=== PATIENT | female | born 1975 | race Caucasian/White ===

== ENCOUNTER → 2016-07-31 | Outpatient (REF) | payer BC, MEDICAID | LOC: M LAB REF 11:15 | PROVIDERS: ATTEND Physician Assistant | DX: N39.0 Urinary tract infection, site not specified (principal) ==

== ENCOUNTER 2018-03-02 07:21 | Day surgery (SDC) | payer OTHER ==
[2018-03-02 07:45] LABS: CONTROL LINE UCG INT CTR LINE PRESENT; HEMATOCRIT 37.5 % (36.0-47.0); HEMOGLOBIN 11.9 g/dl (12.0-15.5); MEAN CORPUSCULAR HEMOGLOBIN 27.5 pg (27.0-33.0); MEAN CORPUSCULAR HGB CONC 31.7 g/dl (32.0-36.5); MEAN CORPUSCULAR VOLUME 86.6 fl (80.0-96.0); PLATELET COUNT, AUTOMATED 353 10^3/uL (150-450); RED BLOOD COUNT 4.33 10^6/uL (4.00-5.40); RED CELL DISTRIBUTION WIDTH 14.9 % (11.5-14.5); URINE PREG TEST NEGATIVE (NEGATIVE); WHITE BLOOD COUNT 6.2 10^3/uL (4.0-10.0)
[2018-03-02] MEDS ORDERED: dexameTHASONE 4 MG/ML 1ML VIAL (J1100) As Ordered (07:57)
[2018-03-02] MEDS ORDERED: LIDOCAINE 2% INJ 100 MG/5 ML SDV (FOR ANES.) As Ordered (07:57)
[2018-03-02] MEDS ORDERED: PROPOFOL 200 MG/20 ML VIAL As Ordered (07:57)
[2018-03-02] MEDS ORDERED: KETOROLAC 60 MG/2 ML VIAL (J1885) As Ordered (07:57)
[2018-03-02] MEDS ORDERED: ONDANSETRON 4MG/2ML VIAL (J2405) As Ordered (07:57)
[2018-03-02] MEDS ORDERED: NEOSTIGMINE 10 MG/10 ML VIAL (J2710) As Ordered (07:57)
[2018-03-02] MEDS ORDERED: GLYCOPYRROLATE INJ 0.2 MG/ML 2 ML VIAL As Ordered (07:57)
[2018-03-02] MEDS ORDERED: fentaNYL 100 MCG/2 ML INJECTION (J3010) As Ordered ×2 (07:58→09:30)
[2018-03-02] MEDS ORDERED: MIDAZOLAM INJ 2 MG/2 ML VIAL (J2250) As Ordered (07:58)
[2018-03-02] MEDS: LR 1,000 ML IV (08:02)
[2018-03-02] MEDS ORDERED: ROCURONIUM BROMIDE 50 MG/5 ML VIAL As Ordered (08:03)
[2018-03-02] MEDS: ACETAMINOPHEN 650 MG SUPP As Ordered (08:55)
[2018-03-02] MEDS: BUPIVACAINE HCL 0.25% 30 ML VIAL As Ordered (09:23)
[2018-03-02] MEDS: fentaNYL 100 MCG/2 ML INJECTION (J3010) IV ×4 (09:30→09:47)
[2018-03-02] MEDS ORDERED: MEPERIDINE INJ 25 MG/ML VIAL (J2175) As Ordered (09:34)
[2018-03-02] MEDS: MEPERIDINE INJ 25 MG/ML VIAL (J2175) IV ×2 (09:36→09:41)
[2018-03-02] MEDS ORDERED: METOCLOPRAMIDE INJ 10MG/2ML VIAL (J2765) IV (10:00)
[2018-03-02] MEDS ORDERED: ONDANSETRON 4MG/2ML VIAL (J2405) IV (10:00)
[2018-03-02] MEDS ORDERED: LR 1,000 ML IV (10:00)
[2018-03-02] MEDS ORDERED: PERCOCET 5MG/325MG TAB PO (10:15)
[2018-03-02] MEDS: PERCOCET 5MG/325MG TAB PO (10:30)
[2018-03-02] MEDS ORDERED: IBUPROFEN 800 MG TAB PO (16:00)
== END 2018-03-03 12:15 | disposition home or self-care (01) ==
LOC: M SDC 07:21
DX: N92.1 Excessive and frequent menstruation with irregular cycle (principal); Z30.2 Encounter for sterilization; I10 Essential (primary) hypertension; K04.7 Periapical abscess without sinus; G43.909 Migraine, unspecified, not intractable, without status migrainosus; J45.909 Unspecified asthma, uncomplicated; Z79.899 Other long term (current) drug therapy
CPT/HCPCS: 58671

== ENCOUNTER → 2018-10-14 | Outpatient (CLI) | payer OTHER, BC ==
[~2018-10-14] MED LIST: AMOX500T PO; BREO1INH INH; IBUP-1114 PO; IBUP1TAB7 PO; LISI10TA4 PO; TYLE325T5 PO; VENTAER IN
== END ==
LOC: M ADAMS 12:49
PROVIDERS: ATTEND Physician Assistant Medical
DX: M54.42 Lumbago with sciatica, left side (principal)

== ENCOUNTER → 2018-10-14 | Outpatient (CLI) | payer BC, OTHER ==
--- NOTE | 2018-10-14 13:51 | REP ---
LEFT HIP, TWO VIEWS: There is no evidence of an acute fracture, dislocation or intrinsic bone disease. IMPRESSION: No fracture or dislocation. Electronically Signed by Isaias Cronin MD 10/14/2018 02:59 P
--- NOTE | 2018-10-14 14:19 | REP ---
LUMBOSACRAL SPINE: Five views of the lumbosacral spine are performed. There is no compression fracture or malalignment. There is normal lumbar lordosis. There is no spondylolysis or spondylolisthesis. Disc spaces are well preserved. Posterior elements are intact. There is slightly curvature toward the left. Tubal ligation clips are seen in the pelvis bilaterally. There is mild sclerosis along the sacroiliac joints. There is mild sclerosis at the facets of L5-S1. IMPRESSION: Mild sclerosis of the facets of L5-S1. Mild sclerosis along the sacroiliac joints. No significant degenerative disc changes noted. There is slight curvature of the lumbar spine convex to the left. Electronically Signed by Isaias Cronin MD 10/14/2018 03:01 P
== END ==
LOC: M ADAMS 12:56
PROVIDERS: ATTEND Physician Assistant Medical
DX: M54.42 Lumbago with sciatica, left side (principal); G95.89 Other specified diseases of spinal cord

== ENCOUNTER 2019-01-20 13:30 | Emergency (ER) | payer BC, OTHER ==
[~2019-01-20] VITALS: Ht 172.7 cm; Wt 56.8 kg
[2019-01-20] MEDS ORDERED: NS 1,000 ML IV ONE (14:00)
[2019-01-20] MEDS ORDERED: PROMETHAZINE INJ 25 MG/ML VIAL (J2550) IV ONE (14:00)
[2019-01-20 14:33] LABS: BASO # 0.1 10^3/uL (0.0-0.2); BASO % 0.3 % (0.0-1.0); EOS % 0.1 % (0.0-3.0); HEMATOCRIT 40.3 % (36.0-47.0); HEMOGLOBIN 13.6 g/dl (12.0-15.5); LYMPH # 1.1 10^3/uL (1.5-4.5); MEAN CORPUSCULAR HGB CONC 33.7 g/dl (32.0-36.5); MEAN CORPUSCULAR VOLUME 88.8 fl (80.0-96.0); MONO # 0.6 10^3/uL (0.0-0.8); MONO % 3.1 % (0.0-5.0); NEUTROPHILS # 16.2 10^3/uL (1.8-7.7); PLATELET COUNT, AUTOMATED 394 10^3/uL (150-450); RED BLOOD COUNT 4.54 10^6/uL (4.00-5.40); WHITE BLOOD COUNT 17.9 10^3/uL (4.0-10.0)
[2019-01-20 15:25] LABS: ALBUMIN 3.9 GM/DL (3.2-5.2); ALT/SGPT 19 U/L (12-78); BILIRUBIN,DIRECT < 0.1 MG/DL (0.0-0.2); BILIRUBIN,TOTAL 0.3 MG/DL (0.2-1.0); BLOOD UREA NITROGEN 12 MG/DL (7-18); CALCIUM LEVEL 8.6 MG/DL (8.5-10.1); CARBON DIOXIDE LEVEL 27 MEQ/L (21-32); CHLORIDE LEVEL 108 MEQ/L (98-107); CREATININE FOR GFR 0.83 MG/DL (0.55-1.30); ETHYL ALCOHOL (ETHANOL) < 0.003 % (0.000-0.010); GLOMERULAR FILTRATION RATE > 60.0 (>58); GLUCOSE, FASTING 136 MG/DL (70-100); LIPASE 132 U/L (73-393); POTASSIUM SERUM 3.9 MEQ/L (3.5-5.1); SODIUM LEVEL 141 MEQ/L (136-145)
[2019-01-20] MEDS ORDERED: ZOFR4TAB16 PO (15:49)
[2019-01-20 16:04] VITALS: BP 116/70
== END 2019-01-20 16:13 | disposition home or self-care (01) ==
LOC: EDBD 13:30 → M ED 13:30
DX: R11.2 Nausea with vomiting, unspecified (principal); I10 Essential (primary) hypertension; Z79.899 Other long term (current) drug therapy
CPT/HCPCS: 80048; 80076; 83690; 85025; 96374; 99284; G0480

== ENCOUNTER 2019-01-24 11:23 | Emergency (ER) | payer BC, MEDICAID ==
[~2019-01-24] VITALS: Ht 172.7 cm; Wt 55.0 kg
[~2019-01-24 11:23] MED LIST changes: +ZOFR4TAB16 PO
[2019-01-24] MEDS ORDERED: NS 1,000 ML IV SCH (11:30)
[2019-01-24] MEDS ORDERED: SYMB80INH PO (11:41)
[2019-01-24 12:02] LABS: BASO # 0.1 10^3/uL (0.0-0.2); BASO % 0.6 % (0.0-1.0); EOS # 0.1 10^3/uL (0.0-0.50); EOS % 1.3 % (0.0-3.0); HEMOGLOBIN 16.5 g/dl (12.0-15.5); LYMPH # 2.2 10^3/uL (1.5-4.5); LYMPH % 25.9 % (24.0-44.0); MEAN CORPUSCULAR HEMOGLOBIN 29.3 pg (27.0-33.0); MEAN CORPUSCULAR HGB CONC 34.4 g/dl (32.0-36.5); MEAN CORPUSCULAR VOLUME 85.1 fl (80.0-96.0); MONO # 0.9 10^3/uL (0.0-0.8); MONO % 10.9 % (0.0-5.0); NEUTROPHILS # 5.1 10^3/uL (1.8-7.7); NEUTROPHILS % 60.9 % (36.0-66.0); PLATELET COUNT, AUTOMATED 474 10^3/uL (150-450); RED BLOOD COUNT 5.64 10^6/uL (4.00-5.40); WHITE BLOOD COUNT 8.4 10^3/uL (4.0-10.0)
[2019-01-24 12:36] LABS: ALT/SGPT 17 U/L (12-78); BILIRUBIN,DIRECT 0.2 MG/DL (0.0-0.2); BILIRUBIN,TOTAL 0.6 MG/DL (0.2-1.0); CK-MB VALUE MASS < 1.0 NG/ML (<3.6); CPK CREATINE PHOSPHOKINASE 39 U/L (26-192); LIPASE 693 U/L (73-393); MB/CK RELATIVE INDEX 2.56 (< OR =4); TOTAL PROTEIN 7.5 GM/DL (6.4-8.2); TROPONIN I < 0.02 NG/ML (< 0.10)
[2019-01-24] MEDS ORDERED: METOCLOPRAMIDE INJ 10MG/2ML VIAL (J2765) IV ONE (13:15)
[2019-01-24 14:15] LABS: HCG, SERUM QUALITATIVE NEGATIVE (NEGATIVE)
[2019-01-24] MEDS ORDERED: ISOVUE-370 76% 100ML VIAL (Q9967) As Ordered ONE (14:51)
[2019-01-24] MEDS ORDERED: SUCRALFATE SUSP 1GM/10ML UD PO ONE (15:15)
[2019-01-24] MEDS ORDERED: NS 1,000 ML IV ONE (15:15)
--- NOTE | 2019-01-24 15:30 | REP ---
HISTORY: Abdominal pain. COMPARISON: None. CONTRAST: 100 mL [id number] There are multiple peripheral nodular enhancing lesions in the liver, all three are in the right lobe, two in the anterior segment and the largest of which is in the posterior segment and measures 3.3 mm. All are consistent with hepatic hemangiomas. The liver is otherwise unremarkable. The gallbladder, spleen, pancreas, adrenal glands, and kidneys are within normal limits. The abdominal aorta and periaortic regions are within normal limits. The bowel loops and the mesenteries are within normal limits. The appendix is well visualized and is unremarkable. There is no free fluid or free air in the abdomen. There is no intraabdominal mass or adenopathy. CT PELVIS: There are bilateral pelvic phleboliths. The bowel loops and their mesenteries are within normal limits. There is no free fluid or free air. Bone window technique the examination shows the osseous structures to be within normal limits. The lung bases are clear. IMPRESSION: 1. There are multiple hepatic lesions, all of which are consistent with benign hepatic hemangiomas. 2. CT findings are otherwise unremarkable. Electronically Signed by Khai Mauricio DO 01/24/2019 03:49 P
[2019-01-24] MEDS ORDERED: REGL10TA6 PO (15:41)
[2019-01-24] MEDS ORDERED: PEPC1TAB5 PO (15:41)
[2019-01-24] MEDS ORDERED: SUCR1SS PO (15:42)
[2019-01-24 16:00] VITALS: BP 132/89
--- NOTE | 2019-01-25 06:07 | ECGEPIP ---
[facility] - ED Test Date: 2019-01-24 Pat Name: LISA EMERY Department: Room: - Gender: Female Change Number Operator: EMMANUELLE : 1975 Requested By: Micki Liu Order Number: [id number] Reading MD: Farshad Arciniega Measurements Intervals [place] Rate: 69 P: 76 NC: 129 QRS: 66 QRSD: 85 T: 52 QT: 425 QTc: 456 Interpretive Statements SINUS RHYTHM POSSIBLE LEFT ATRIAL ENLARGEMENT INCOMPLETE RIGHT BUNDLE BRANCH BLOCK NO PRIORS FOR COMPARISON Electronically Signed on 01-25-2019 6:06:48 EDT by Farshad Arciniega
== END 2019-01-24 16:14 | disposition home or self-care (01) ==
LOC: EDBD 11:23 → M ED 11:23
DX: K85.90 Acute pancreatitis without necrosis or infection, unspecified (principal); I45.19 Other right bundle-branch block; K76.89 Other specified diseases of liver; I10 Essential (primary) hypertension; J45.909 Unspecified asthma, uncomplicated; G43.909 Migraine, unspecified, not intractable, without status migrainosus; Z87.891 Personal history of nicotine dependence; Z79.899 Other long term (current) drug therapy
CPT/HCPCS: 74177; 80047; 80076; 82550; 82553; 83690; 84484; 84703; 85025; 93005; 93041; 96361; 96374; 99285; J2765; Q9967

== ENCOUNTER → 2020-10-26 | Outpatient (CLI) | payer BC, MEDICAID, OTHER ==
[~2020-10-26] MED LIST changes: +LISI10TA22 PO; -LISI10TA4 PO; +PEPC1TAB5 PO; +REGL10TA6 PO; +SUCR1SS PO; +SYMB80INH PO
--- NOTE | 2020-10-26 13:43 | REP ---
INDICATION: PAIN COMPARISON: None. TECHNIQUE: AP, lateral, bilateral oblique views. FINDINGS: Soft tissue swelling consistent with inversion injury. No obvious acute fracture or dislocation. Ankle mortise appears intact. IMPRESSION: Swelling. No acute fracture or dislocation appreciated. <Electronically signed by [place] > 10/26/20 [id number]
== END ==
LOC: M WUC 09:33
PROVIDERS: ATTEND Physician Assistant
DX: M25.572 Pain in left ankle and joints of left foot (principal)

== ENCOUNTER → 2020-12-10 | Outpatient (REF) | payer BC, OTHER ==
[2020-12-10 17:17] LABS: APPEARANCE, URINE CLEAR (CLEAR); BACTERIA, URINE AUTO NEGATIVE (NEGATIVE); BILIRUBIN, URINE AUTO NEGATIVE (NEGATIVE); BLOOD, URINE BLOOD 1+ (NEGATIVE); COLOR, URINE YELLOW (YELLOW); GLUCOSE, URINE (UA) AUTO NEGATIVE (NEGATIVE); KETONE, URINE AUTO NEGATIVE (NEGATIVE); LEUKOCYTE ESTERASE, URINE AUTO NEGATIVE (NEGATIVE); MUCUS, URINE SMALL (NEGATIVE); NITRITE, URINE AUTO NEGATIVE (NEGATIVE); PROTEIN, URINE AUTO NEGATIVE (NEGATIVE); RBC, URINE AUTO 0 /HPF (0-3); SPECIFIC GRAVITY URINE AUTO 1.011 (1.002-1.035); SQUAMOUS EPITHELIAL CELL UR AU 1 /HPF (0-6); UROBILINOGEN, URINE AUTO 0.2 mg/dL (0.0-2.0); WBC, URINE AUTO 0 /HPF (0-3)
[2020-12-10 17:22] LABS: BASO % 0.6 % (0.0-1.0); EOS # 0.2 10^3/uL (0.0-0.5); EOS % 3.2 % (0.0-3.0); HEMOGLOBIN 13.4 g/dl (12.0-15.5); LYMPH # 2.2 10^3/uL (1.5-5.0); LYMPH % 34.8 % (24.0-44.0); MEAN CORPUSCULAR HEMOGLOBIN 28.5 pg (27.0-33.0); MEAN CORPUSCULAR HGB CONC 31.9 g/dl (32.0-36.5); MEAN CORPUSCULAR VOLUME 89.2 fl (80.0-96.0); MONO # 0.6 10^3/uL (0.0-0.8); MONO % 9.5 % (2.0-8.0); NEUTROPHILS # 3.2 10^3/uL (1.5-8.5); NEUTROPHILS % 51.7 % (36.0-66.0); PLATELET COUNT, AUTOMATED 394 10^3/uL (150-450); RED BLOOD COUNT 4.71 10^6/uL (4.00-5.40); WHITE BLOOD COUNT 6.2 10^3/uL (4.0-10.0)
[2020-12-10 17:53] LABS: ALBUMIN 3.9 GM/DL (3.2-5.2); ALT/SGPT 15 U/L (12-78); BILIRUBIN,TOTAL 0.6 MG/DL (0.2-1.0); BLOOD UREA NITROGEN 8 MG/DL (7-18); CALCIUM LEVEL 8.5 MG/DL (8.5-10.1); CARBON DIOXIDE LEVEL 29 MEQ/L (21-32); CHLORIDE LEVEL 105 MEQ/L (98-107); CHOLESTEROL LEVEL 186 MG/DL (<200); CHOLESTEROL RISK RATIO 3.444 (<5); CREATININE FOR GFR 0.88 MG/DL (0.55-1.30); GLOMERULAR FILTRATION RATE > 60.0 (>58); GLUCOSE, FASTING 78 MG/DL (70-100); HDL CHOLESTEROL 54 MG/DL (>40); LDL CHOLESTEROL 120 MG/DL (<100); NON-HDL-C 132 MG/DL; POTASSIUM SERUM 4.6 MEQ/L (3.5-5.1); SODIUM LEVEL 136 MEQ/L (136-145); TOTAL PROTEIN 6.9 GM/DL (6.4-8.2); TRIGLYCERIDES LEVEL 61 MG/DL (<150)
== END ==
LOC: M SFHCADAM 13:09
PROVIDERS: ATTEND Physician Assistant Medical
DX: I10 Essential (primary) hypertension (principal); J45.30 Mild persistent asthma, uncomplicated; Z84.1 Family history of disorders of kidney and ureter

== ENCOUNTER → 2020-12-25 | Outpatient (REF) | payer BC, OTHER ==
[2020-12-25 11:46] LABS: APPEARANCE, URINE CLEAR (CLEAR); BACTERIA, URINE AUTO NEGATIVE (NEGATIVE); BILIRUBIN, URINE AUTO NEGATIVE (NEGATIVE); BLOOD, URINE BLOOD NEGATIVE (NEGATIVE); COLOR, URINE STRAW (YELLOW); GLUCOSE, URINE (UA) AUTO NEGATIVE (NEGATIVE); KETONE, URINE AUTO NEGATIVE (NEGATIVE); LEUKOCYTE ESTERASE, URINE AUTO NEGATIVE (NEGATIVE); NITRITE, URINE AUTO NEGATIVE (NEGATIVE); PROTEIN, URINE AUTO NEGATIVE (NEGATIVE); RBC, URINE AUTO 0 /HPF (0-3); SPECIFIC GRAVITY URINE AUTO 1.003 (1.002-1.035); SQUAMOUS EPITHELIAL CELL UR AU 0 /HPF (0-6); UROBILINOGEN, URINE AUTO 0.2 mg/dL (0.0-2.0); WBC, URINE AUTO 0 /HPF (0-3)
== END ==
LOC: M SFHCADAM 09:15
PROVIDERS: ATTEND Physician Assistant Medical
DX: I10 Essential (primary) hypertension (principal)

== ENCOUNTER → 2021-02-25 | Outpatient (CLI) | payer BC, OTHER ==
--- NOTE | 2021-02-25 13:22 | REP ---
INDICATION: COUGH COMPARISON: None. TECHNIQUE: PA and lateral. FINDINGS: The mediastinum and cardiac silhouette are normal. The lung herman are clear and without acute consolidation, effusion, or pneumothorax. The skeletal structures are intact and normal. IMPRESSION: No acute cardiopulmonary process. <Electronically signed by [place] > 02/25/21 [id number]
== END ==
LOC: M ADAMS 12:39
PROVIDERS: ATTEND Family Medicine
DX: R05 Cough (principal)

== ENCOUNTER → 2021-02-25 | Outpatient (REF) | payer BC | LOC: M SFHCADAM 12:39 | PROVIDERS: ATTEND Family Medicine | DX: R05 Cough (principal) ==

== ENCOUNTER → 2022-06-20 | Outpatient (CLI) | payer OTHER, BC | LOC: M LAB 18:03 | DX: Z00.5 Encounter for examination of potential donor of organ and tissue (principal) ==

== ENCOUNTER → 2023-05-14 | Outpatient (CLI) | payer BC ==
[2023-05-14 12:22] LABS: BASO # 0.1 10^3/uL (0.0-0.2); BASO % 0.7 % (0.0-1.0); EOS # 0.3 10^3/uL (0.0-0.5); EOS % 3.1 % (0.0-3.0); HEMATOCRIT 42.4 % (36.0-47.0); HEMOGLOBIN 14.2 g/dl (12.0-15.5); LYMPH # 1.8 10^3/uL (1.5-5.0); LYMPH % 21.2 % (24.0-44.0); MEAN CORPUSCULAR HEMOGLOBIN 28.7 pg (27.0-33.0); MEAN CORPUSCULAR HGB CONC 33.5 g/dl (32.0-36.5); MEAN CORPUSCULAR VOLUME 85.8 fl (80.0-96.0); MONO # 0.7 10^3/uL (0.0-0.8); MONO % 8.6 % (2.0-8.0); NEUTROPHILS # 5.7 10^3/uL (1.5-8.5); NEUTROPHILS % 66.2 % (36.0-66.0); PLATELET COUNT, AUTOMATED 405 10^3/uL (150-450); RED BLOOD COUNT 4.94 10^6/uL (4.00-5.40); WHITE BLOOD COUNT 8.6 10^3/uL (4.0-10.0)
[2023-05-14 12:54] LABS: ALBUMIN 3.8 G/DL (3.2-5.2); ALKALINE PHOSPHATASE 53 U/L (46-116); ALT/SGPT 13 U/L (7.0-40); AST/SGOT 14 U/L (<34); BILIRUBIN,TOTAL 0.6 MG/DL (0.3-1.2); BLOOD UREA NITROGEN 10 MG/DL (9-23); CARBON DIOXIDE LEVEL 25 MMOL/L (20-31); CHLORIDE LEVEL 107 MMOL/L (98-107); CHOLESTEROL LEVEL 165 MG/DL (<200); CHOLESTEROL RISK RATIO 3.51 (<5); CREATININE FOR GFR 0.77 MG/DL (0.55-1.30); GLOMERULAR FILTRATION RATE > 60.0 (>58); GLUCOSE, FASTING 95 MG/DL (60-100); HDL CHOLESTEROL 46.9 MG/DL (>40); LDL CHOLESTEROL 106.1 MG/DL (<100); NON-HDL-C 118.1 MG/DL; POTASSIUM SERUM 4.6 MMOL/L (3.5-5.1); SODIUM LEVEL 141 MMOL/L (136-145); TOTAL PROTEIN 6.9 G/DL (5.7-8.2); TRIGLYCERIDES LEVEL 60 MG/DL (<150)
== END ==
LOC: M LAB 11:55
PROVIDERS: ATTEND Nurse Practitioner Family
DX: Z00.00 Encounter for general adult medical examination without abnormal findings (principal)

== ENCOUNTER → 2025-01-09 | Outpatient (CLI) | payer BC ==
[~2025-01-09] MED LIST changes: +AMOX875T2 PO; +IBUP200C25 PO
== END ==
LOC: M WHC 11:12
PROVIDERS: ATTEND Obstetrics & Gynecology
DX: N92.6 Irregular menstruation, unspecified (principal); N83.291 Other ovarian cyst, right side

== ENCOUNTER → 2025-01-21 | Outpatient (REF) | payer BC ==
[2025-01-21 18:32] LABS: PLATELET COUNT, AUTOMATED 395 10^3/uL (150-450)
[2025-01-21 18:42] LABS: FREE T4 1.02 NG/DL (0.89-1.76)
[2025-01-21 18:43] LABS: LUTEINIZING HORMONE 5.0 mIU/ML
== END ==
LOC: M LABDRWAD 17:47 → M LABWUC 17:47
PROVIDERS: ATTEND Obstetrics & Gynecology
DX: N92.1 Excessive and frequent menstruation with irregular cycle (principal); N94.6 Dysmenorrhea, unspecified